=== PATIENT | female | born 1975 | race Caucasian/White ===

== ENCOUNTER 2017-01-27 19:40 | Emergency (ER) | payer BC, OTHER ==
[2017-01-27] MEDS ORDERED: HYDROmorphone 1 MG/ML 1 ML SYRINGE IVP STA ×2 (20:20→21:48)
[2017-01-27] MEDS ORDERED: SODIUM CHLORIDE 0.9% 1,000 ML IV STA (20:20)
[2017-01-27] MEDS ORDERED: ONDANSETRON 4 MG/2 ML VIAL IVP STA (20:20)
[2017-01-27] MEDS ORDERED: KETOROLAC 30 MG/ML 1 ML VIAL IVP STA (20:20)
[2017-01-27 20:58] LABS: Basophils # (A) 0.1 k/uL (0-0.2); Basophils % (A) 1 %; CH 29.6; CHCM 33.7; Eosinophils # (A) 0.2 k/uL (0-0.7); Eosinophils % (A) 2 %; HCT 36.8 % (34.0-46.0); HDW 2.57; HGB 12.7 gm/dL (11.4-16.0); Luc # (Auto) 0.08; Luc % (Auto) 1; Lymphocytes # (A) 2.2 k/uL (1.0-4.8); Lymphocytes % (A) 23 %; MCH 30.5 pg (25.0-35.0); MCHC 34.5 g/dL (31.0-37.0); MCV 88.5 fL (80.0-100.0); Mean Platelet Volume 7.8; Monocytes # (A) 0.5 k/uL (0-1.0); Monocytes % (A) 5 %; Neutrophils # (A) 6.4 k/uL (1.3-7.7); Neutrophils % (A) 69 %; RBC 4.16 m/uL (3.80-5.40); RDW 13.5 % (11.5-15.5); WBC 9.3 k/uL (3.8-10.6); WBC (Perox) 9.53
[2017-01-27 21:08] LABS: ALT 27 U/L (9-52); AST 14 U/L (14-36); Alkaline Phosphatase 81 U/L (38-126); Amylase 37 U/L (30-110); Anion Gap 7 mmol/L; Blood Urea Nitrogen 10 mg/dL (7-17); Calcium 9.1 mg/dL (8.4-10.2); Carbon Dioxide 24 mmol/L (22-30); Chloride 107 mmol/L (98-107); Glucose 83 mg/dL (74-99); Non-African American GFR(MDRD) >60 (>60 ml/min/1.73 sqM); Partial Thromboplastin Time 28.6 sec (22.0-30.0); Potassium 3.9 mmol/L (3.5-5.1); Prothrombin Time 10.3 sec (9.0-12.0); Sodium 138 mmol/L (137-145); Total Bilirubin 0.4 mg/dL (0.2-1.3); Total Protein 6.5 g/dL (6.3-8.2)
--- NOTE | 2017-01-27 21:22 | ED ---
Abdominal Pain HPI - General Chief Complaint: Abdominal Pain Stated Complaint: Abd pain Time Seen by Provider: 01/27/17 20:04 Source: patient, family, RN notes reviewed, old records reviewed Mode of arrival: ambulatory Limitations: no limitations - History of Present Illness Initial Comments: Is a 42-year-old female presenting to emergency Department chief complaint of epigastric and diffuse abdominal pain for the past month. She reports that she' s her primary care provider in a 100 mL surgeon for evaluation for gallbladder. She reports that she went to [facility] yesterday and had an ultrasound and blood work was obtained. They diagnosed her with the UTI. Patient reports that yesterday and today she's not started to develop some right flank pain. She continues to have the burning sensation over her entire abdomen. Patient is concerned that last time she had the flank pain similar to that she may have had a kidney stone. Patient denies any fever or chills, chest pain or shortness of breath. She reports that she's had her appendix removed. She states that she cannot tolerate any by mouth medication as she has been nauseated and wanting to vomit. - Related Data Home Medications Medication Instructions Recorded Confirmed ALPRAZolam [Xanax] 0.5 mg PO TID PRN 11/14/15 01/27/17 Escitalopram [Lexapro] 20 mg PO HS 11/14/15 01/27/17 Furosemide [Lasix] 40 mg PO DAILY PRN 11/14/15 01/27/17 Zolpidem [Ambien] 10 mg PO HS PRN 11/14/15 01/27/17 Diphenox-Atrop 2.5-0.025 mg 1 tab PO QID PRN 01/27/17 01/27/17 [Lomotil] Famotidine [Pepcid AC] 10 mg PO DAILY PRN 01/27/17 01/27/17 Previous Rx's Medication Instructions Recorded Sucralfate [Carafate] 1 gm PO BID #30 tablet 01/27/17 Allergies Allergy/AdvReac Type Severity Reaction Status Date / Time NSAIDS (Non-Steroidal AdvReac Severe Nausea & Verified 01/27/17 20:01 Anti-Inflamma Vomiting Review of Systems ROS Statement: Those systems with pertinent positive or pertinent negative responses have been documented in the HPI. ROS Other: All systems not noted in ROS Statement are negative. Past Medical History Past Medical History: GERD/Reflux, Osteoarthritis (OA) Additional Past Medical History / Comment(s): hx. h-pylori, past hx. sepsis due to kidney infection 2013, stomach abcess History of Any Multi-Drug Resistant Organisms: MRSA Date of last positivie culture/infection: 2013 MDRO Source:: abdomen Past Surgical History: Bariatric Surgery, Bladder Surgery, Hysterectomy, Orthopedic Surgery Additional Past Surgical History / Comment(s): lap band surg. & since removed, 9 surg. on left knee, 2 on right knee, surg. as baby for hematoma on head, bladder suspension Past Anesthesia/Blood Transfusion Reactions: Motion Sickness, Postoperative Nausea & Vomiting (PONV) Additional Past Anesthesia/Blood Transfusion Reaction / Comment(s): always has problems urinating after spinal anesthesia Past Psychological History: Anxiety, Depression Smoking Status: Current some day smoker Past Alcohol Use History: None Reported Past Drug Use History: None Reported - Past Family History Father Family Medical History: Deep Vein Thrombosis (DVT), Pulmonary Embolus General Exam Limitations: no limitations Course Vital Signs 01/27/17 01/27/17 01/27/17 19:43 20:45 21:50 Temperature 98.3 F 97.6 F Pulse Rate 88 84 63 Respiratory 20 16 16 Rate Blood Pressure 123/85 144/84 124/61 O2 Sat by Pulse 98 97 96 Oximetry 01/27/17 22:35 Temperature 97.6 F Pulse Rate 61 Respiratory 18 Rate Blood Pressure 138/76 O2 Sat by Pulse 96 Oximetry Medical Decision Making - Medical Decision Making Is a 42-year-old female presenting to emergency Department chief complaint of epigastric and diffuse abdominal pain for the past month. She reports that she' s her primary care provider in a 100 mL surgeon for evaluation for gallbladder. She reports that she went to [facility] yesterday and had an ultrasound and blood work was obtained. They diagnosed her with the UTI. Patient reports that yesterday and today she's not started to develop some right flank pain. She continues to have the burning sensation over her entire abdomen. I did review patient's visit from [facility]. They did discharge her with Keflex and Bentyl and Pepcid. Patient reports that she didn't also was given prescription of Zofran. She did not take the Zofran appropriately today and Is Something under Her Tongue. Patient Labwork Was Again Reviewed Today and Is Negative for Any Acute Process. Patient's Continued Pain. Discusses Seems to Be Likely a Gastritis or Possibly Duodenal or Gastric Ulcer. Patient Will Be Discharged with Zofran Starter Pack and Carafate Prescription. Discussed Falling up with Her Primary Care Provider. Return Parameters Were Discussed. - Lab Data Result diagrams: 01/27/17 20:47 01/27/17 20:47 Lab Results 01/27/17 01/27/17 01/27/17 Range/Units 20:47 20:47 20:47 WBC 9.3 (3.8-10.6) k/uL RBC 4.16 (3.80-5.40) m/uL Hgb 12.7 (11.4-16.0) gm/dL Hct 36.8 (34.0-46.0) % MCV 88.5 (80.0-100.0) fL MCH 30.5 (25.0-35.0) pg MCHC 34.5 (31.0-37.0) g/dL RDW 13.5 (11.5-15.5) % Plt Count 333 (150-450) k/uL Neutrophils % 69 % Lymphocytes % 23 % Monocytes % 5 % Eosinophils % 2 % Basophils % 1 % Neutrophils # 6.4 (1.3-7.7) k/uL Lymphocytes # 2.2 (1.0-4.8) k/uL Monocytes # 0.5 (0-1.0) k/uL Eosinophils # 0.2 (0-0.7) k/uL Basophils # 0.1 (0-0.2) k/uL PT 10.3 (9.0-12.0) sec INR 1.0 (<1.2) APTT 28.6 (22.0-30.0) sec Sodium 138 (137-145) mmol/L Potassium 3.9 (3.5-5.1) mmol/L Chloride 107 (98-107) mmol/L Carbon Dioxide 24 (22-30) mmol/L Anion Gap 7 mmol/L BUN 10 (7-17) mg/dL Creatinine 0.80 (0.52-1.04) mg/dL Est GFR (MDRD) Af Amer >60 (>60 ml/min/1.73 sqM) Est GFR (MDRD) Non-Af >60 (>60 ml/min/1.73 sqM) Glucose 83 (74-99) mg/dL Calcium 9.1 (8.4-10.2) mg/dL Total Bilirubin 0.4 (0.2-1.3) mg/dL AST 14 (14-36) U/L ALT 27 (9-52) U/L Alkaline Phosphatase 81 (38-126) U/L Total Protein 6.5 (6.3-8.2) g/dL Albumin 3.6 (3.5-5.0) g/dL Amylase 37 (30-110) U/L Lipase 43 (23-300) U/L Urine Color Urine Appearance (Clear) Urine pH (5.0-8.0) Ur Specific [place] (1.001-1.035) Urine Protein (Negative) Urine Glucose (UA) (Negative) Urine Ketones (Negative) Urine Blood (Negative) Urine Nitrite (Negative) Urine Bilirubin (Negative) Urine Urobilinogen (<2.0) mg/dL Ur Leukocyte Esterase (Negative) 01/27/17 Range/Units 21:36 WBC (3.8-10.6) k/uL RBC (3.80-5.40) m/uL Hgb (11.4-16.0) gm/dL Hct (34.0-46.0) % MCV (80.0-100.0) fL MCH (25.0-35.0) pg MCHC (31.0-37.0) g/dL RDW (11.5-15.5) % Plt Count (150-450) k/uL Neutrophils % % Lymphocytes % % Monocytes % % Eosinophils % % Basophils % % Neutrophils # (1.3-7.7) k/uL Lymphocytes # (1.0-4.8) k/uL Monocytes # (0-1.0) k/uL Eosinophils # (0-0.7) k/uL Basophils # (0-0.2) k/uL PT (9.0-12.0) sec INR (<1.2) APTT (22.0-30.0) sec Sodium (137-145) mmol/L Potassium (3.5-5.1) mmol/L Chloride (98-107) mmol/L Carbon Dioxide (22-30) mmol/L Anion Gap mmol/L BUN (7-17) mg/dL Creatinine (0.52-1.04) mg/dL Est GFR (MDRD) Af Amer (>60 ml/min/1.73 sqM) Est GFR (MDRD) Non-Af (>60 ml/min/1.73 sqM) Glucose (74-99) mg/dL Calcium (8.4-10.2) mg/dL Total Bilirubin (0.2-1.3) mg/dL AST (14-36) U/L ALT (9-52) U/L Alkaline Phosphatase (38-126) U/L Total Protein (6.3-8.2) g/dL Albumin (3.5-5.0) g/dL Amylase (30-110) U/L Lipase (23-300) U/L Urine Color Light Yellow Urine Appearance Clear (Clear) Urine pH 6.0 (5.0-8.0) Ur Specific [place] 1.004 (1.001-1.035) Urine Protein Negative (Negative) Urine Glucose (UA) Negative (Negative) Urine Ketones Negative (Negative) Urine Blood Negative (Negative) Urine Nitrite Negative (Negative) Urine Bilirubin Negative (Negative) Urine Urobilinogen <2.0 (<2.0) mg/dL Ur Leukocyte Esterase Negative (Negative) - Radiology Data Radiology results: report reviewed KUB are negative for any acute process. Disposition Clinical Impression: Abdominal pain, Gastritis Disposition: HOME SELF-CARE Condition: Good Instructions: Abdominal Pain (ED) Additional Instructions: Patient advised to take medications as prescribed. Follow-up with her primary care provider. Return to the emergency department if any alarming signs or symptoms occur. Prescriptions: Sucralfate [Carafate] 1 gm PO BID #30 tablet Referrals: Travis Fuentes DO [Primary Care Provider] - 1-2 days Time of Disposition: 22:12
--- NOTE | 2017-01-27 21:25 | XR ---
EXAMINATION TYPE: XR KUB DATE OF EXAM: 01/27/2017 COMPARISON: NONE HISTORY: Abdominal pain TECHNIQUE: 2 views FINDINGS: Bowel gas pattern is normal. There is no sign of intestinal obstruction or pneumoperitoneum . Fecal pattern is normal. There are no pathologic calcifications over the kidneys. IMPRESSION: Nonacute abdomen.
[2017-01-27] MEDS ORDERED: SODIUM CHLORIDE 0.9% 1,000 ML IV ONE (21:34)
[2017-01-27 21:51] VITALS: TEMP 97.6
[2017-01-27 21:53] LABS: Appearance,Urine Clear (Clear); Bilirubin,Urine Negative (Negative); Glucose,Urine (UA) Negative (Negative); Ketones,Urine Negative (Negative); Leukocyte Esterase,Urine Negative (Negative); Nitrite,Urine Negative (Negative); Protein,Urine Negative (Negative); Specific Gravity,Urine 1.004 (1.001-1.035); UA Billing (MACRO vs. MICRO) CHEM; Urobilinogen,Urine <2.0 mg/dL (<2.0)
[2017-01-27] MEDS ORDERED: ONDANSETRON 4 MG ODT STARTER PACK 2 TAB BTL PO STA (22:14)
[2017-01-27 22:36] VITALS: BP 138/76; PULSE 61; RESP 18
== END 2017-01-27 22:36 | disposition home or self-care (01) ==
LOC: EC 19:40
DX: K29.70 Gastritis, unspecified, without bleeding (principal); R11.0 Nausea; K21.9 Gastro-esophageal reflux disease without esophagitis; F32.9 Major depressive disorder, single episode, unspecified; F41.9 Anxiety disorder, unspecified; F17.200 Nicotine dependence, unspecified, uncomplicated; Z79.899 Other long term (current) drug therapy; Z88.6 Allergy status to analgesic agent; Z87.440 Personal history of urinary (tract) infections; Z98.84 Bariatric surgery status; Z98.890 Other specified postprocedural states
CPT/HCPCS: 99284; 96374; 96375; 96376; 96361 ×2; 36415; 80053; 82150; 83690; 85025; 85610; 85730; 81003; 74000; J2405; J1170; S0119

== ENCOUNTER → 2017-02-25 | Outpatient (CLI) | payer OTHER ==
[2017-02-25 16:39] LABS: Basophils # (A) 0.1 k/uL (0-0.2); Basophils % (A) 1 %; CH 29.6; CHCM 32.8; Eosinophils # (A) 0.1 k/uL (0-0.7); Eosinophils % (A) 1 %; HGB 13.2 gm/dL (11.4-16.0); Luc # (Auto) 0.16; Luc % (Auto) 1; Lymphocytes # (A) 3.2 k/uL (1.0-4.8); Lymphocytes % (A) 25 %; MCH 29.2 pg (25.0-35.0); MCHC 32.2 g/dL (31.0-37.0); MCV 90.7 fL (80.0-100.0); Mean Platelet Volume 7.3; Monocytes # (A) 0.6 k/uL (0-1.0); Monocytes % (A) 5 %; Neutrophils # (A) 8.4 k/uL (1.3-7.7); Neutrophils % (A) 67 %; RBC 4.51 m/uL (3.80-5.40); RDW 13.4 % (11.5-15.5); WBC 12.5 k/uL (3.8-10.6); WBC (Perox) 12.16
[2017-02-25 17:06] LABS: ALT 30 U/L (9-52); AST 15 U/L (14-36); Alkaline Phosphatase 94 U/L (38-126); Anion Gap 12 mmol/L; Blood Urea Nitrogen 10 mg/dL (7-17); C Reactive Protein 13.6 mg/L (<10.0); Calcium 9.9 mg/dL (8.4-10.2); Carbon Dioxide 25 mmol/L (22-30); Chloride 105 mmol/L (98-107); Glucose 92 mg/dL (74-99); Non-African American GFR(MDRD) >60 (>60 ml/min/1.73 sqM); Potassium 4.4 mmol/L (3.5-5.1); Sodium 142 mmol/L (137-145); Total Bilirubin 0.3 mg/dL (0.2-1.3); Total Protein 7.3 g/dL (6.3-8.2)
[2017-02-25 18:48] LABS: Erythrocyte Sedimentation Rate 20 mm/hr (0-20)
[2017-02-26 01:40] LABS: Gliadin AB IgA, Deaminated NEGATIVE (NEGATIVE); Gliadin AB IgG, Deaminated NEGATIVE (NEGATIVE); Gliadin AB IgG, Unit <0.4 U/mL; Tis Transglutaminase IgA Unit <0.5 AI; Tis Transglutaminase IgG Unit <0.8 U/mL
== END | disposition home or self-care (01) ==
LOC: LABWHC1 16:07
PROVIDERS: ATTEND Internal Medicine Gastroenterology
DX: R63.4 Abnormal weight loss (principal)
CPT/HCPCS: 36415; 80053; 83516; 85025; 85652; 86140

== ENCOUNTER 2017-03-03 10:59 | Day surgery (SDC) | payer OTHER ==
[2017-03-01 16:04] VITALS: BMI 37.4
[~2017-03-03 10:59] MED LIST: LACTATED RINGERS 1,000 ML IV SCH
[2017-03-03 12:32] VITALS: TEMP 97.7
[2017-03-03] MEDS ORDERED: LIDOCAINE 1% 20 ML VIAL (10MG/ML) FOR IV START INTRADERMA ONE (12:33)
[2017-03-03] MEDS ORDERED: GLYCOPYRROLATE 0.2 MG/ML 2 ML VIAL ONE (12:35)
[2017-03-03] MEDS ORDERED: PROPOFOL 10 MG/ML 20 ML VIAL IV ONE (12:35)
[2017-03-03] MEDS ORDERED: LIDOCAINE 1% INJ 10MG/ML (20 ML MDV) ONE (12:35)
--- NOTE | 2017-03-03 12:57 | P.PCN ---
Date of Procedure: 03/03/17 Preoperative Diagnosis: Postoperative Diagnosis: Procedure(s) Performed: Brief history: Patient is a pleasant 42-year-old white female, scheduled for an elective upper endoscopy as well as colonoscopy as a part of evaluation of epigastric abdominal pain, intermittent dysphagia to solids, chronic diarrhea and change in bowel habits for the last 7 years duration. Procedure performed: Esophagogastroduodenoscopy with biopsy Colonoscopy with biopsy Preoperative diagnosis: Epigastric pain and intermittent dysphagia to solids Chronic diarrhea Anesthesia: MAC Procedure: After informed consent was obtained from the patient was brought into the endoscopy unit and IV sedation was administered by anesthesia under continuous monitoring. Initially upper endoscopy was done. The Olympus GF 160 video endoscope was inserted inserted into the mouth and esophagus intubated without any difficulty and was gradually advanced into the stomach and duodenum and carefully examined. The bulb and second part of the duodenum appeared normal. Biopsies were done from the duodenum to rule out celiac disease. The scope was then withdrawn into the stomach adequately insufflated with air and upon careful examination the antrum had mild gastritis and biopsies were done from this area. The body, cardia and fundus appeared normal. The scope was then withdrawn into the esophagus. The GE junction was located at 40 cm to the incisors. small hiatal hernia noted It appeared regular with no erythema erosions or ulcerations. biopsies were also done from the distal esophagus. Rest of the esophagus appeared normal. esophageal stricture noted. Patient tolerated the procedure well. At this time the patient continued to remain sedation. Initial digital rectal examination was normal. Olympus CF 160 video colonoscope was then inserted into the rectum and gradually advanced to the cecum without any difficulty. Careful examination was performed as the scope was gradually being withdrawn. The prep was excellent. The cecum, ascending colon, transverse colon, descending colon, sigmoid colon and rectum appeared normal. Retroflexion was performed in the rectum and no lesions were noted. random biopsies were done from ascending and descending colon to rule out meds/collagenous colitis. Patient tolerated the procedure well. Impression: 1. Upper endoscopy revealed mild antral gastritis and a small hiatal hernia but no evidence of esophagitis or peptic ulcer disease. 2. Colonoscopy revealed normal-appearing colon from rectum to cecum with no evidence of colitis or colorectal neoplasia. Recommendations: Findings of this examination were discussed with the patient as well as her family. She was advised to follow with the biopsy results. She'll be seen in office in 3-4 weeks. Implants: Indications for Procedure: Operative Findings: Description of Procedure:
[2017-03-03 13:04] VITALS: RESP 18
[2017-03-03 13:47] VITALS: BP 134/75; PULSE 62
== END 2017-03-03 13:56 | disposition home or self-care (01) ==
LOC: ORWHC2ENDO 10:59
PROVIDERS: ATTEND Internal Medicine Gastroenterology
DX: K29.50 Unspecified chronic gastritis without bleeding (principal); K21.0 Gastro-esophageal reflux disease with esophagitis; K44.9 Diaphragmatic hernia without obstruction or gangrene; K52.9 Noninfective gastroenteritis and colitis, unspecified; R19.4 Change in bowel habit; F17.200 Nicotine dependence, unspecified, uncomplicated; M19.90 Unspecified osteoarthritis, unspecified site; Z79.891 Long term (current) use of opiate analgesic; Z79.899 Other long term (current) drug therapy; Z88.6 Allergy status to analgesic agent
CPT/HCPCS: 43239; 45380; 88305; 88342

== ENCOUNTER 2017-04-20 13:29 | Emergency (ER) | payer OTHER ==
[2017-04-20 13:35] VITALS: RESP 16
[2017-04-20] MEDS ORDERED: SODIUM CHLORIDE 0.9% 1,000 ML IV STA (14:29)
--- NOTE | 2017-04-20 14:46 | ED ---
Nausea/Vomiting/Diarrhea HPI - General Chief complaint: Abdominal Pain Stated complaint: Abd Pain Time Seen by Provider: 04/20/17 14:22 Source: patient Mode of arrival: ambulatory Limitations: no limitations - History of Present Illness Initial comments: Patient presents with nausea vomiting diarrhea for the past 4 days. Patient states she has yellow diarrhea greater than 10 times per day. Patient states she has been vomiting intermittently as well. Patient states this is a chronic recurrent issue for her, states has been ongoing for 4-5 years. Occurs approximately 2 times per year. States she sees turret lathe machinist Dr. Trevino, tried to get into her office but was told she should go to the ER. Symptoms associated with mild lower abdominal cramping. Patient states she has seen tiny amounts of blood after wiping. Patient states she had a colonoscopy that showed no inflammation. Patient states she was diagnosed with H. pylori, states she completed a course of medication therapy for H. pylori. Patient denies vaginal bleeding or vaginal discharge. Patient complains of urinary frequency. Patient states symptoms are the exact same as previous episodes over the past 4-5 years. EGD/Colonoscopy done on 03/03/[address] Trevino. Patient admitted to hospital May 2016, for suspected possible left-sided pyelonephritis, CT of the abdomen at that time showed no obstruction or acute process within the abdomen. Patient states her symptoms today are the exact same as they were in May of last year. MD complaint: nausea, vomiting, diarrhea Onset/Timin -: days(s) - Related Data Home Medications Medication Instructions Recorded Confirmed ALPRAZolam [Xanax] 0.5 mg PO TID 11/14/15 04/20/17 Furosemide [Lasix] 40 mg PO DAILY PRN 11/14/15 04/20/17 Zolpidem [Ambien] 10 mg PO HS PRN 11/14/15 04/20/17 Diphenox-Atrop 2.5-0.025 mg 1 tab PO QID PRN 01/27/17 04/20/17 [Lomotil] Acetaminophen-Codeine 300-30mg 1 tab PO Q4-6H PRN 03/01/17 04/20/17 [Tylenol #3] Sucralfate [Carafate] 1 gm PO QID 03/01/17 04/20/17 Escitalopram [Lexapro] 20 mg PO DAILY 04/20/17 04/20/17 Allergies Allergy/AdvReac Type Severity Reaction Status Date / Time aspirin Allergy Severe Nausea & Verified 04/20/17 14:37 Vomiting NSAIDS (Non-Steroidal AdvReac Severe Nausea & Verified 04/20/17 14:37 Anti-Inflamma Vomiting Review of Systems ROS Statement: Those systems with pertinent positive or pertinent negative responses have been documented in the HPI. ROS Other: All systems not noted in ROS Statement are negative. Constitutional: Reports: fever (Subjective). Denies: chills, weakness Eyes: Denies: vision change ENT: Denies: throat pain, congestion Respiratory: Denies: cough, dyspnea Cardiovascular: Denies: chest pain, palpitations Endocrine: Denies: fatigue Gastrointestinal: Reports: abdominal pain, nausea, vomiting, diarrhea. Denies: constipation, hematemesis, melena Genitourinary: Reports: frequency. Denies: urgency, dysuria, hematuria, discharge, abnormal menses Musculoskeletal: Denies: back pain, arthralgia, myalgia Skin: Denies: rash Neurological: Denies: headache, weakness, numbness, confusion Past Medical History Past Medical History: GERD/Reflux, Osteoarthritis (OA) Additional Past Medical History / Comment(s): hx. h-pylori, past hx. sepsis due to kidney infection 2013, stomach abcess History of Any Multi-Drug Resistant Organisms: MRSA Date of last positivie culture/infection: 2013 MDRO Source:: abdomen Past Surgical History: Bariatric Surgery, Bladder Surgery, Hysterectomy, Orthopedic Surgery Additional Past Surgical History / Comment(s): lap band surg. & since removed, 9 surg. on left knee, 2 on right knee, surg. as baby for hematoma on head, bladder suspension Past Anesthesia/Blood Transfusion Reactions: Motion Sickness, Postoperative Nausea & Vomiting (PONV) Additional Past Anesthesia/Blood Transfusion Reaction / Comment(s): always has problems urinating after spinal anesthesia Past Psychological History: Anxiety, Depression Smoking Status: Current every day smoker Past Alcohol Use History: None Reported Past Drug Use History: None Reported - Past Family History Father Family Medical History: Deep Vein Thrombosis (DVT), Pulmonary Embolus General Exam - General Exam Comments Initial Comments: Patient sitting up on [place]. No acute distress. Conversing normally. Well appearing. Well-groomed well-dressed. Patient does not appear in pain or nauseated. Patient smiling as she goes through bottles of medication from her purse. Limitations: no limitations General appearance: alert, in no apparent distress Head exam: Present: atraumatic, normocephalic Eye exam: Present: PERRL, EOMI ENT exam: Present: mucous membranes moist, normal external ear exam Neck exam: Present: normal inspection Respiratory exam: Present: normal lung sounds bilaterally. Absent: respiratory distress, wheezes, rales, rhonchi Cardiovascular Exam: Present: regular rate, normal rhythm GI/Abdominal exam: Present: soft, other (Abd is nontender on palpation, nondistended. ). Absent: distended, tenderness, guarding, rebound, rigid Rectal exam: Present: normal inspection, normal rectal tone, heme (-) stool, other (bedside hemoccult neg). Absent: heme (+) stool Neurological exam: Present: alert, oriented X3 Psychiatric exam: Present: normal affect, normal mood Skin exam: Present: warm, dry, intact, normal color. Absent: rash Course Vital Signs 04/20/17 04/20/17 13:33 17:17 Temperature 98.3 F 98.0 F Pulse Rate 82 66 Respiratory 16 16 Rate Blood Pressure 130/67 129/68 O2 Sat by Pulse 97 97 Oximetry Medical Decision Making - Medical Decision Making Patient well appearing on exam, well hydrated. No tenderness of the abdomen. Will check stool studies given complaint of frequent diarrhea. Abdominal labs ordered. IV fluids ordered. Patient with mild elevation of white blood cell count, no other significant laboratory abnormalities on labs. Patient states she has left-sided abdominal pain, given elevation in white count , and history of intra-abdominal abscess, CT of the abdomen was ordered. CT of the abdomen was negative for any acute pathology. Patient reassessed, abdomen remains nontender. Patient states symptoms resolved at this time. Patient had no diarrhea in the ER, unable to provide stool sample. Patient instructed to follow up with her turret lathe machinist. at bedside states this is been a chronic problem for the past 10 years. Mother bedside states she's had all the tests and they can't figure out what' s wrong. SHe feels comfortable going home at this time. All questions answered. Patient discharged home. Return immediately if new or worsening symptoms. - Lab Data Result diagrams: 04/20/17 15:10 04/20/17 15:10 Lab Results 04/20/17 04/20/1704/20/17 Range/Units 14:37 15:10 15:10 WBC 13.6 H (3.8-10.6) k/uL RBC 4.40 (3.80-5.40) m/uL Hgb 13.0 (11.4-16.0) gm/dL Hct 39.2 (34.0-46.0) % MCV 89.0 (80.0-100.0) fL MCH 29.6 (25.0-35.0) pg MCHC 33.3 (31.0-37.0) g/dL RDW 13.7 (11.5-15.5) % Plt Count 366 (150-450) k/uL Neutrophils % 79 % Lymphocytes % 15 % Monocytes % 5 % Eosinophils % 0 % Basophils % 0 % Neutrophils # 10.8 H (1.3-7.7) k/uL Lymphocytes # 2.0 (1.0-4.8) k/uL Monocytes # 0.6 (0-1.0) k/uL Eosinophils # 0.1 (0-0.7) k/uL Basophils # 0.1 (0-0.2) k/uL Sodium 141 (137-145) mmol/L Potassium 3.4 L (3.5-5.1) mmol/L Chloride 108 H (98-107) mmol/L Carbon Dioxide 23 (22-30) mmol/L Anion Gap 10 mmol/L BUN 8 (7-17) mg/dL Creatinine 0.88 (0.52-1.04) mg/dL Est GFR (MDRD) Af Amer >60 (>60 ml/min/1.73 sqM) Est GFR (MDRD) Non-Af >60 (>60 ml/min/1.73 sqM) Glucose 97 (74-99) mg/dL Calcium 9.5 (8.4-10.2) mg/dL Total Bilirubin 0.5 (0.2-1.3) mg/dL AST 17 (14-36) U/L ALT 31 (9-52) U/L Alkaline Phosphatase 92 (38-126) U/L Total Protein 7.7 (6.3-8.2) g/dL Albumin 4.2 (3.5-5.0) g/dL Lipase 43 (23-300) U/L Urine HCG, Qual Not Detected (Not Detectd) Disposition Clinical Impression: Diarrhea, Abdominal pain Disposition: HOME SELF-CARE Condition: Good Instructions: Chronic Diarrhea (ED), Abdominal Pain (ED) Additional Instructions: Make Appointment with her turret lathe machinist to be reevaluated this week. Referrals: Travis Fuentes DO [Primary Care Provider] - 1-2 days
--- NOTE | 2017-04-20 14:53 | XR ---
EXAMINATION TYPE: XR abdomen 2V DATE OF EXAM: 04/20/2017 CLINICAL HISTORY: Abdominal pain with nausea and diarrhea and left-sided flank pain. TECHNIQUE: Supine and upright views of the abdomen are obtained. COMPARISON: CT abdomen and pelvis June 02, 2016. Abdominal x-ray January 27, 2017 FINDINGS: Focal subsegmental sutures epigastric region just below diaphragm are consistent with produ ct Harrison fundoplication surgery. Scattered gas is seen in non-distended stomach and small bowel loop s. Gas and fecal material is seen in non-distended colon. Scattered pelvic phleboliths are redemonst rated. There is no visceromegaly, pneumoperitoneum, or abnormal calcification appreciated. The lung bases are clear and the osseous structures are intact. IMPRESSION: Overall nonobstructive bowel gas pattern. No definite nephrolithiasis.
[2017-04-20 15:32] LABS: Basophils # (A) 0.1 k/uL (0-0.2); Basophils % (A) 0 %; CH 29.1; CHCM 32.9; Eosinophils # (A) 0.1 k/uL (0-0.7); Eosinophils % (A) 0 %; HCT 39.2 % (34.0-46.0); HDW 2.49; Luc # (Auto) 0.13; Luc % (Auto) 1; Lymphocytes % (A) 15 %; MCH 29.6 pg (25.0-35.0); MCHC 33.3 g/dL (31.0-37.0); Mean Platelet Volume 6.7; Monocytes # (A) 0.6 k/uL (0-1.0); Monocytes % (A) 5 %; Neutrophils # (A) 10.8 k/uL (1.3-7.7); Neutrophils % (A) 79 %; RDW 13.7 % (11.5-15.5); WBC 13.6 k/uL (3.8-10.6); WBC (Perox) 13.73
[2017-04-20 15:35] LABS: ALT 31 U/L (9-52); AST 17 U/L (14-36); Alkaline Phosphatase 92 U/L (38-126); Anion Gap 10 mmol/L; Blood Urea Nitrogen 8 mg/dL (7-17); Calcium 9.5 mg/dL (8.4-10.2); Carbon Dioxide 23 mmol/L (22-30); Chloride 108 mmol/L (98-107); Glucose 97 mg/dL (74-99); Non-African American GFR(MDRD) >60 (>60 ml/min/1.73 sqM); Potassium 3.4 mmol/L (3.5-5.1); Sodium 141 mmol/L (137-145); Total Bilirubin 0.5 mg/dL (0.2-1.3); Total Protein 7.7 g/dL (6.3-8.2)
[2017-04-20 15:58] LABS: Appearance,Urine Clear (Clear); Bilirubin,Urine Negative (Negative); Glucose,Urine (UA) Negative (Negative); Ketones,Urine Negative (Negative); Leukocyte Esterase,Urine Negative (Negative); Mucus,Urine Rare /hpf; Nitrite,Urine Negative (Negative); Particle Count 2292; Protein,Urine Negative (Negative); RBC,Urine 1 /hpf (0-5); Specific Gravity,Urine 1.006 (1.001-1.035); Squamous Epithelial Cell,Urine 7 /hpf (0-4); UA Billing (MACRO vs. MICRO) MICRO; Urobilinogen,Urine <2.0 mg/dL (<2.0); WBC,Urine 2 /hpf (0-5)
[2017-04-20] MEDS ORDERED: MORPHINE SULFATE 2 MG/ML SYRINGE IVP ONE ×3 (16:22→16:26)
[2017-04-20] MEDS ORDERED: RX INFO: IV CONTRAST WAS GIVEN 1 EACH MISC MISCELLANE PRN (16:22)
--- NOTE | 2017-04-20 17:10 | CT ---
EXAMINATION TYPE: CT abdomen pelvis w con DATE OF EXAM: 04/20/2017 COMPARISON: 06/02/2016 HISTORY: Left sided abdominal pain CT DLP: 1753.8 mGycm Automated exposure control for dose reduction was used. TECHNIQUE: Helical acquisition of images was performed from the lung bases through the pelvis. CONTRAST: Performed without Oral Contrast and with IV Contrast, patient injected with 100 mL of Omnipaque 350. FINDINGS: Lung bases are clear of consolidation. There is no pleural effusion. There are clips at the gastroeso phageal junction. Liver shows no focal defect. Bile ducts are not dilated. Spleen and pancreas appear normal. Gallbladd er appears normal. There is no adrenal mass. Kidneys show satisfactory contrast opacification. There is no hydronephrosi s. There is no sign of appendicitis. There is no ascites. I see no intestinal wall thickening. There are no dilated loops. Bladder distends smoothly. There is no sign of a pelvic mass. I see no bony chilo tructive process. There are calcific densities posterior to the cecum that could relate to previous s urgery. IMPRESSION: NEGATIVE CT SCAN OF THE ABDOMEN AND PELVIS. THERE IS CLEARING OF MILD INTERSTITIAL DENSITY AT THE DARLING G BASES COMPARED TO OLD EXAM. I DO NOT SEE A CAUSE FOR LEFT-SIDED ABDOMINAL PAIN.
[2017-04-20 17:18] VITALS: BP 129/68; PULSE 66; TEMP 98
== END 2017-04-20 17:32 | disposition home or self-care (01) ==
LOC: EC 13:29
DX: R10.30 Lower abdominal pain, unspecified (principal); R19.7 Diarrhea, unspecified; R11.2 Nausea with vomiting, unspecified; R35.0 Frequency of micturition; K21.9 Gastro-esophageal reflux disease without esophagitis; M19.90 Unspecified osteoarthritis, unspecified site; F32.9 Major depressive disorder, single episode, unspecified; F41.9 Anxiety disorder, unspecified; F17.200 Nicotine dependence, unspecified, uncomplicated; Z79.899 Other long term (current) drug therapy; Z88.6 Allergy status to analgesic agent; Z90.710 Acquired absence of both cervix and uterus; Z98.84 Bariatric surgery status
CPT/HCPCS: 99284 ×2; 96374 ×2; 96361 ×2; 36415; 80053; 83690; 85025; 81001; 81025; 74020; 74177; Q9967; J2270

== ENCOUNTER 2018-01-25 12:20 | Emergency (ER) | payer OTHER ==
[2018-01-25 12:30] VITALS: BP 137/94; PULSE 104; RESP 20; TEMP 98.1
--- NOTE | 2018-01-25 13:00 | XR ---
EXAMINATION TYPE: XR ankle complete RT, XR foot complete RT DATE OF EXAM: 01/25/2018 CLINICAL HISTORY: Fall injury with pain and limited motion. TECHNIQUE: Frontal, lateral and oblique images of the right ankle and foot are obtained. COMPARISON: None. FINDINGS: There is no acute fracture/dislocation evident in the right ankle. The ankle mortise appe ars within normal limits. Tiny spur from lateral malleolus is seen. The overlying soft tissue appears unremarkable. There is small size inferior calcaneal spur. There is no acute fracture or dislocation evident in the right foot. Hallex valgus positioning first metatarsophalangeal joint with mild joint space loss is present. Some flexion in the toes is noted. Overlying soft tissue is unremarkable. IMPRESSION: There is no acute fracture or dislocation in the right ankle or foot.
[2018-01-25] MEDS ORDERED: Acetaminophen-Codeine 300-30mg TAB PO STA (13:29)
[2018-01-25] MEDS ORDERED: ACET/COD 300 MG/30 MG STARTER PACK 6 TAB BTL PO STA (13:33)
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
== END 2018-01-25 13:45 | disposition home or self-care (01) ==
LOC: EC 12:20
DX: S93.401A Sprain of unspecified ligament of right ankle, initial encounter (principal); F41.9 Anxiety disorder, unspecified; F32.9 Major depressive disorder, single episode, unspecified; M19.90 Unspecified osteoarthritis, unspecified site; F17.200 Nicotine dependence, unspecified, uncomplicated; Z86.14 Personal history of Methicillin resistant Staphylococcus aureus infection; Z79.899 Other long term (current) drug therapy; Z88.6 Allergy status to analgesic agent; W10.9XXA Fall (on) (from) unspecified stairs and steps, initial encounter; Y93.01 Activity, walking, marching and hiking
CPT/HCPCS: 29515; 99283

== ENCOUNTER 2019-08-08 14:15 | Emergency (ER) | payer OTHER ==
[2019-08-08 14:26] VITALS: RESP 18; TEMP 97.5
[2019-08-08] MEDS ORDERED: ACETAMINOPHEN TAB 500 MG TAB PO STA (15:06)
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
[2019-08-08] MEDS ORDERED: AMPICILLIN-SULBACTAM 3 GM in SODIUM CHLORIDE 0.9% 100 ML IVPB STA (17:26)
[2019-08-08] MEDS ORDERED: DIAZEPAM 5 MG/ML 2 ML INJ IVP STA (17:28)
[2019-08-08] MEDS ORDERED: MORPHINE SULFATE 4 MG/ML SYRINGE IVP STA (17:28)
[2019-08-08] MEDS ORDERED: MORPHINE SULFATE 4 MG/ML SYRINGE IM STA (17:41)
[2019-08-08] MEDS ORDERED: ALPRAZolam 0.5 MG TAB PO STA (17:41)
[2019-08-08] MEDS ORDERED: traMADol 50 MG STARTER PACK 3 TAB BTL PO STA (18:31)
[2019-08-08 18:49] VITALS: BP 144/94; PULSE 59
== END 2019-08-08 18:47 | disposition home or self-care (01) ==
LOC: EC 14:15
DX: S02.32XA Fracture of orbital floor, left side, initial encounter for closed fracture (principal); S02.40DA Maxillary fracture, left side, initial encounter for closed fracture; F41.9 Anxiety disorder, unspecified; R45.1 Restlessness and agitation; M19.90 Unspecified osteoarthritis, unspecified site; F32.9 Major depressive disorder, single episode, unspecified; F17.200 Nicotine dependence, unspecified, uncomplicated; Z88.6 Allergy status to analgesic agent; Z79.891 Long term (current) use of opiate analgesic; Z79.899 Other long term (current) drug therapy; Z86.14 Personal history of Methicillin resistant Staphylococcus aureus infection; Y00.XXXA Assault by blunt object, initial encounter; Y93.89 Activity, other specified; Y92.009 Unspecified place in unspecified non-institutional (private) residence as the place of occurrence of the external cause
CPT/HCPCS: 70486; 70450; 99284; 96372; J2270

== ENCOUNTER 2020-03-30 14:46 | Emergency (ER) | payer OTHER ==
[2020-03-30] MEDS ORDERED: MORPHINE SULFATE 4 MG/ML SYRINGE IVP STA (15:30)
[2020-03-30] MEDS ORDERED: PANTOPRAZOLE 40 MG/10 ML VIAL IVP STA (15:30)
[2020-03-30] MEDS ORDERED: ONDANSETRON 4 MG/2 ML VIAL IVP STA (15:30)
[2020-03-30 16:43] LABS: Basophils % (A) 0 %; Eosinophils # (A) 0.2 k/uL (0-0.7); Eosinophils % (A) 2 %; HCT 42.9 % (34.0-46.0); HGB 13.4 gm/dL (11.4-16.0); Lymphocytes # (A) 1.7 k/uL (1.0-4.8); Lymphocytes % (A) 14 %; MCH 25.2 pg (25.0-35.0); MCHC 31.3 g/dL (31.0-37.0); MCV 80.5 fL (80.0-100.0); Mean Platelet Volume 7.5; Monocytes # (A) 0.5 k/uL (0-1.0); Monocytes % (A) 4 %; Neutrophils # (A) 9.6 k/uL (1.3-7.7); Neutrophils % (A) 79 %; Platelet Count 419 k/uL (150-450); RBC 5.33 m/uL (3.80-5.40); RDW 14.1 % (11.5-15.5)
[2020-03-30 16:53] LABS: Albumin 4.3 g/dL (3.5-5.0); Calcium 10.2 mg/dL (8.4-10.2); Partial Thromboplastin Time 29.5 sec (22.0-30.0); Potassium 4.1 mmol/L (3.5-5.1); Prothrombin Time 10.1 sec (9.0-12.0); Total Bilirubin 0.6 mg/dL (0.2-1.3)
--- NOTE | 2020-03-30 17:29 | CT ---
EXAMINATION TYPE: CT abdomen pelvis w con DATE OF EXAM: 03/30/2020 HISTORY: Lower abdominal pain, rectal pain. Hx bariatric sx, H-pylori. CT DLP: 2127.2mGycm Automated Exposure Control for Dose Reduction was Utilized. CONTRAST: CT scan of the abdomen and pelvis is performed without oral but with IV Contrast, patient injected wi th 100 mL of Isovue 300. COMPARISON: CT abdomen and pelvis April 20, 2017 FINDINGS: LUNG BASES: Mild cardiomegaly. LIVER/GB: No significant abnormality is appreciated. PANCREAS: No significant abnormality is seen. SPLEEN: No significant abnormality is seen. ADRENALS: No significant abnormality is seen. KIDNEYS: No significant abnormality is seen. BOWEL: Surgical changes epigastric region just below diaphragm suspect prior Hannah fundoplication prince rgery. Stomach poorly distended and suboptimally evaluated. Suboptimal evaluation overall of bowel wi thout enteric contrast. No suspicious small or large bowel dilatation noted. Calcific small densities in the posterior right lower quadrant could reflect phleboliths, unchanged from prior. UTERUS/ADNEXA: Uterus is surgically absent. Normal size ovaries in the pelvis near axial image 73. LYMPH NODES: No greater than 1cm abdominal or pelvic lymph nodes are appreciated. OSSEOUS STRUCTURES: No significant abnormality is seen. OTHER: No significant additional abnormality is seen. IMPRESSION: No significant new or acute finding is seen to account for patient's clinical symptoms. N o bowel obstruction noted.
[2020-03-30] MEDS ORDERED: MORPHINE SULFATE 2 MG/ML SYRINGE IVP ONE (18:16)
--- NOTE | 2020-03-30 18:20 | ED ---
General Adult HPI - General Chief complaint: GI Bleed Stated complaint: GI Bleed Time Seen by Provider: 03/30/20 15:02 Source: patient Mode of arrival: ambulatory Limitations: no limitations - History of Present Illness Initial comments: Patient is a 45-year-old female presenting to the emergency Department with complaints of lower abdominal pain, rectal pain, mild rectal bleeding x 2-3 weeks. She states she has a history of H. pylori and has had the same symptoms with past infections. Patient states she has been delaying her treatment secondary to stress at home. Patient states that this time she is having a hard time even sitting on her bottom secondary to pain. She states she's been having a lot of bowel movements and feels like "she has an infection in her rectum." Patient admits to subjective fevers over the past 2 days but has not been able to check. Patient admits to some mild nausea, no vomiting. She does admit to some very mild lower abdominal discomfort. She denies any urinary symptoms. She denies any hematuria. Date she has been hospitalized in the past for a severe infection. She denies any chest pain or shortness of breath. She has no further complaints at this time. Upon arrival to the ER, she is afebrile. - Related Data Home Medications Medication Instructions Recorded Confirmed Zolpidem [Ambien] 10 mg PO HS PRN 11/14/15 03/30/20 Escitalopram [Lexapro] 20 mg PO HS 04/20/17 03/30/20 ALPRAZolam [Xanax] 0.25 mg PO HS PRN 03/30/20 03/30/20 Acetaminophen Tab [Tylenol] 650 mg PO Q4H PRN 03/30/20 03/30/20 Furosemide [Lasix] 20 mg PO DAILY PRN 03/30/20 03/30/20 Loratadine [Claritin] 10 mg PO DAILY PRN 03/30/20 03/30/20 Naproxen 500 mg PO BID PRN 03/30/20 03/30/20 Ondansetron [Zofran] 4 mg PO Q6H PRN 03/30/20 03/30/20 SUMAtriptan succinate [Imitrex] 50 mg PO DAILY PRN 03/30/20 03/30/20 Previous Rx's Medication Instructions Recorded Amoxicillin 1,000 mg PO BID 10 Days #40 capsule 03/30/20 Clarithromycin 500 mg PO BID 10 Days #20 tablet 03/30/20 Allergies Allergy/AdvReac Type Severity Reaction Status Date / Time aspirin Allergy Severe Nausea & Verified 03/30/20 16:22 Vomiting NSAIDS (Non-Steroidal AdvReac Severe Nausea & Verified 03/30/20 16:22 Anti-Inflamma Vomiting Review of Systems ROS Statement: Those systems with pertinent positive or pertinent negative responses have been documented in the HPI. ROS Other: All systems not noted in ROS Statement are negative. Past Medical History Past Medical History: GERD/Reflux, Osteoarthritis (OA) Additional Past Medical History / Comment(s): hx. h-pylori, past hx. sepsis due to kidney infection 2013, stomach abcess History of Any Multi-Drug Resistant Organisms: MRSA Date of last positivie culture/infection: 2013 MDRO Source:: abdomen Past Surgical History: Bariatric Surgery, Bladder Surgery, Hysterectomy, Orthopedic Surgery Additional Past Surgical History / Comment(s): lap band surg. & since removed, 9 surg. on left knee, 2 on right knee, surg. as baby for hematoma on head, bladder suspension Past Anesthesia/Blood Transfusion Reactions: Motion Sickness, Postoperative Nausea & Vomiting (PONV) Additional Past Anesthesia/Blood Transfusion Reaction / Comment(s): always has problems urinating after spinal anesthesia Past Psychological History: Anxiety, Depression Smoking Status: Current every day smoker Past Alcohol Use History: None Reported Past Drug Use History: None Reported - Past Family History Father Family Medical History: Deep Vein Thrombosis (DVT), Pulmonary Embolus General Exam - General Exam Comments Initial Comments: GENERAL: Patient is well-developed and well-nourished. Patient is nontoxic and in mild distress. HEAD: Atraumatic, normocephalic. EYES: Pupils equal round and reactive to light, extraocular movements intact, sclera anicteric, conjunctiva are normal. Eyelids were unremarkable. ENT: TMs normal, nares patent, oropharynx clear without exudates. Moist mucous membranes. NECK: Normal range of motion, supple without lymphadenopathy or JVD. LUNGS: Unlabored respirations. Breath sounds clear to auscultation bilaterally and equal. No wheezes rales or rhonchi. HEART: Regular rate and rhythm without murmurs, rubs or gallops. ABDOMEN: Mild suprapubic lower abdominal discomfort. Soft, normoactive bowel sounds. No guarding, no rebound. No masses appreciated. : Deferred MUSCULOSKELETAL: Normal extremities with adequate strength and normal range of motion, no pitting or edema. No clubbing or cyanosis. NEUROLOGICAL: Patient is alert and oriented x 3. Motor and sensory are also intact. Cranial nerves II through XII grossly intact. Symmetrical smile. Normal speech, normal gait. PSYCH: Normal mood, normal affect. SKIN: Warm, Dry, normal turgor, no rashes or lesions noted. Limitations: no limitations Rectal exam: Present: normal inspection, normal rectal tone, heme (-) stool, hemorrhoids (Very mild external and internal hemorrhoids.), other (No visible b leeding.) Course Vital Signs 03/30/20 14:51 Temperature 99.5 F Pulse Rate 95 Respiratory 18 Rate Blood Pressure 137/87 O2 Sat by Pulse 98 Oximetry Medical Decision Making - Medical Decision Making Patient is a 45-year-old female, with history of H. pylori infection, presenting for lower abdominal discomfort, rectal pain, rectal bleeding that has been happening for the past 3 weeks. She does see GI specialist Dr. aMlik but has not in many years. Her vital signs are stable she is afebrile. Patient states she is unable to sit on her behind is secondary to this shooting pain. She continuously asked for pain medication. Her lab work shows a very slight leukocytosis at 12, most likely reactive. Rest of lab work is stable, stable hemoglobin, lactic acid is 1.3, stool occult blood was negative. I did do a computed tomography scan of her abdomen and pelvic which showed no acute findings. Patient was given fluids, pain control. She's been resting comfortably in the ER. She was seen on several occasions sitting on her behind without discomfort. She is moving around her hospital bed without discomfort. She is requesting additional pain medicine before she is discharged. I do recommend following up with her GI specialist. I will start her on antibiotics for possible H. pylori infection. Patient is agreeable with this plan of care. She is stable for discharge. Return parameters were discussed with the patient she verbalized understanding. Case discussed with Dr. Coreas. - Lab Data Result diagrams: 03/30/20 16:29 03/30/20 16:29 Lab Results 03/30/20 03/30/20 03/30/20 Range/Units 16:29 16:29 16:29 WBC 12.0 H (3.8-10.6) k/uL RBC 5.33 (3.80-5.40) m/uL Hgb 13.4 (11.4-16.0) gm/dL Hct 42.9 (34.0-46.0) % MCV 80.5 (80.0-100.0) fL MCH 25.2 (25.0-35.0) pg MCHC 31.3 (31.0-37.0) g/dL RDW 14.1 (11.5-15.5) % Plt Count 419 (150-450) k/uL Neutrophils % 79 % Lymphocytes % 14 % Monocytes % 4 % Eosinophils % 2 % Basophils % 0 % Neutrophils # 9.6 H (1.3-7.7) k/uL Lymphocytes # 1.7 (1.0-4.8) k/uL Monocytes # 0.5 (0-1.0) k/uL Eosinophils # 0.2 (0-0.7) k/uL Basophils # 0.0 (0-0.2) k/uL PT 10.1 (9.0-12.0) sec INR 1.0 (<1.2) APTT 29.5 (22.0-30.0) sec Sodium 141 (137-145) mmol/L Potassium 4.1 (3.5-5.1) mmol/L Chloride 107 (98-107) mmol/L Carbon Dioxide 22 (22-30) mmol/L Anion Gap 12 mmol/L BUN 11 (7-17) mg/dL Creatinine 1.02 (0.52-1.04) mg/dL Est GFR (CKD-EPI)AfAm 78 (>60 ml/min/1.73 sqM) Est GFR (CKD-EPI)NonAf 68 (>60 ml/min/1.73 sqM) Glucose 107 H (74-99) mg/dL Plasma Lactic Acid Edgar (0.7-2.0) mmol/L Calcium 10.2 (8.4-10.2) mg/dL Total Bilirubin 0.6 (0.2-1.3) mg/dL AST 21 (14-36) U/L ALT 15 (4-34) U/L Alkaline Phosphatase 145 H (38-126) U/L Total Protein 8.0 (6.3-8.2) g/dL Albumin 4.3 (3.5-5.0) g/dL Stool Occult Blood (Negative) 03/30/20 03/30/20 Range/Units 16:29 16:41 WBC (3.8-10.6) k/uL RBC (3.80-5.40) m/uL Hgb (11.4-16.0) gm/dL Hct (34.0-46.0) % MCV (80.0-100.0) fL MCH (25.0-35.0) pg MCHC (31.0-37.0) g/dL RDW (11.5-15.5) % Plt Count (150-450) k/uL Neutrophils % % Lymphocytes % % Monocytes % % Eosinophils % % Basophils % % Neutrophils # (1.3-7.7) k/uL Lymphocytes # (1.0-4.8) k/uL Monocytes # (0-1.0) k/uL Eosinophils # (0-0.7) k/uL Basophils # (0-0.2) k/uL PT (9.0-12.0) sec INR (<1.2) APTT (22.0-30.0) sec Sodium (137-145) mmol/L Potassium (3.5-5.1) mmol/L Chloride (98-107) mmol/L Carbon Dioxide (22-30) mmol/L Anion Gap mmol/L BUN (7-17) mg/dL Creatinine (0.52-1.04) mg/dL Est GFR (CKD-EPI)AfAm (>60 ml/min/1.73 sqM) Est GFR (CKD-EPI)NonAf (>60 ml/min/1.73 sqM) Glucose (74-99) mg/dL Plasma Lactic Acid Edgar 1.3 (0.7-2.0) mmol/L Calcium (8.4-10.2) mg/dL Total Bilirubin (0.2-1.3) mg/dL AST (14-36) U/L ALT (4-34) U/L Alkaline Phosphatase (38-126) U/L Total Protein (6.3-8.2) g/dL Albumin (3.5-5.0) g/dL Stool Occult Blood Negative (Negative) Disposition Clinical Impression: Abdominal pain, Rectal pain Disposition: HOME SELF-CARE Condition: Stable Instructions (If sedation given, give patient instructions): Rectal Pain (ED) Additional Instructions: Please return to the Emergency Department if symptoms worsen or any other concerns. Take antibiotic as prescribed. Follow up with GI doctor as discussed. Prescriptions: Amoxicillin 1,000 mg PO BID 10 Days #40 capsule Clarithromycin 500 mg PO BID 10 Days #20 tablet Is patient prescribed a controlled substance at d/c from ED?: No Referrals: Travis Fuentes DO [Primary Care Provider] - 1-2 days Minna Malik MD [STAFF PHYSICIAN] - 1-2 days
[2020-03-30 18:39] VITALS: BP 125/80; PULSE 64; RESP 16; TEMP 98.5
== END 2020-03-30 18:39 | disposition home or self-care (01) ==
LOC: EC 14:46
DX: K62.5 Hemorrhage of anus and rectum (principal); R10.30 Lower abdominal pain, unspecified; D72.829 Elevated white blood cell count, unspecified; F41.9 Anxiety disorder, unspecified; F32.9 Major depressive disorder, single episode, unspecified; F17.200 Nicotine dependence, unspecified, uncomplicated; Z79.899 Other long term (current) drug therapy; Z88.6 Allergy status to analgesic agent; Z98.84 Bariatric surgery status; Z90.710 Acquired absence of both cervix and uterus
CPT/HCPCS: 96374; 96375 ×2; 96376; 36415; 80053; 83605; 85025; 85610; 85730; 82272; 74177; 99285; J2270 ×2; J2405; C9113; Q9967

== ENCOUNTER → 2020-09-17 | Outpatient (CLI) | payer OTHER ==
--- NOTE | 2020-09-17 09:48 | US ---
EXAMINATION TYPE: US gallbladder DATE OF EXAM: 09/17/2020 COMPARISON: CT abdomen and pelvis March 30, 2020 CLINICAL HISTORY: R10.84 abdominal pain, K81.0 Acute cholecystitis. EXAM MEASUREMENTS: Liver Length: 14.7 cm Gallbladder Wall: 0.2 cm CBD: 0.4 cm Right Kidney: 11.0 x 4.5 x 5.5 cm Morbidly obese patient technically difficult study. Pancreas: Obscured by bowel gas Liver: wnl Gallbladder: wnl Evidence for sonographic Horner's sign: no CBD: wnl Right Kidney: wnl Visualized liver shows no worrisome mass or ductal dilatation. Gallbladder seen without mobile shadow ing gallstones. Suboptimal visualization of pancreas. No biliary dilatation. No right-sided hydroneph rosis. IMPRESSION: No gallstones or ultrasound evidence for acute cholecystitis.
== END ==
LOC: RADUSWWP 08:35
PROVIDERS: ATTEND Family Medicine
DX: R10.84 Generalized abdominal pain (principal)
CPT/HCPCS: 76705

== ENCOUNTER 2021-03-14 14:13 | Emergency (ER) | payer OTHER ==
[2021-03-14 14:30] VITALS: TEMP 98.2
[2021-03-14 15:05] LABS: Basophils # (A) 0.1 k/uL (0-0.2); Basophils % (A) 1 %; Eosinophils # (A) 0.1 k/uL (0-0.7); Eosinophils % (A) 1 %; Lymphocytes # (A) 1.8 k/uL (1.0-4.8); Lymphocytes % (A) 19 %; MCHC 32.4 g/dL (31.0-37.0); MCV 83.3 fL (80.0-100.0); Mean Platelet Volume 6.9; Monocytes # (A) 0.4 k/uL (0-1.0); Monocytes % (A) 4 %; Neutrophils # (A) 7.2 k/uL (1.3-7.7); Neutrophils % (A) 75 %; Platelet Count 484 k/uL (150-450); RBC 4.44 m/uL (3.80-5.40); WBC 9.6 k/uL (3.8-10.6)
[2021-03-14 15:15] LABS: Albumin 3.9 g/dL (3.5-5.0); Calcium 9.3 mg/dL (8.4-10.2); Potassium 4.2 mmol/L (3.5-5.1); Total Bilirubin 0.2 mg/dL (0.2-1.3); Total Protein 7.2 g/dL (6.3-8.2)
[2021-03-14 15:16] LABS: INR 0.9 (<1.2); Partial Thromboplastin Time 30.7 sec (22.0-30.0); Prothrombin Time 10.1 sec (9.0-12.0)
[2021-03-14] MEDS ORDERED: MORPHINE SULFATE 2 MG/ML SYRINGE IVP ONE (15:16)
--- NOTE | 2021-03-14 15:40 | XR ---
EXAMINATION TYPE: XR chest 2V DATE OF EXAM: 03/14/2021 COMPARISON: 06/02/2016 INDICATION: Pain TECHNIQUE: Frontal and lateral views of the chest are obtained. FINDINGS: The heart size is normal. The pulmonary vasculature is normal. The lungs are clear. IMPRESSION: 1. No acute pulmonary process.
--- NOTE | 2021-03-14 16:08 | CT ---
EXAMINATION TYPE: CT chest angio for PE DATE OF EXAM: 03/14/2021 COMPARISON: None HISTORY: elevated d-dimer CT DLP: 767.3 mGycm CONTRAST: CT chest with contrast and 3D reconstruction with MIP imaging is performed with IV Contrast, patient injected with 100 mL of Isovue 300. Contrast-enhanced CT of the chest was performed through the course of the pulmonary arteries with susanna g and mediastinal window settings submitted. 3D reconstruction with MIP imaging was also performed. PULMONARY ARTERIES: The pulmonary arteries and their major tributaries are patent. I do not see sid dence for sizable filling defect to suggest pulmonary embolic process. LUNGS: The lungs are clear and free of infiltrate. No evidence for atelectasis. No pulmonary nodule or mass is detected. No pleural effusion. MEDIASTINUM: Thoracic aorta is of normal caliber,however, evaluation is limited given timing of the contrast bolus. If there is concern for thoracic aortic pathology consider JASSON. Correlate clinicall y . The heart is not enlarged. No evidence for mediastinal mass. No mediastinal lymph nodes greater than 1cm. HILAR STRUCTURES: No evidence for mass. No hilar lymph nodes greater than 1 cm. UPPER ABDOMEN: No significant abnormality is seen. IMPRESSION: 1. No evidence for Pulmonary embolism at this time.
--- NOTE | 2021-03-14 16:15 | ED ---
Chest Pain HPI - General Chief Complaint: Chest Pain Stated Complaint: Chest Pain-sent by Travis Fuentes Time Seen by Provider: 03/14/21 15:12 Source: patient, RN notes reviewed Mode of arrival: wheelchair Limitations: no limitations - History of Present Illness Initial Comments: Patient is a 46-year-old female that presents to the emergency department per her primary care's request due to having mid chest and left-sided chest pain. She notes that she did have a pulmonary embolism earlier this year was put on an anticoagulant but had GI bleeding is a side effect and was taken off of it. She notes this chest pain feels very similar to her previous pulmonary embolism. She denied any cardiac history. She denied any difficulty in breathing at this time while during the exam and interview. She was otherwise a well-appearing 46-year-old female in no apparent distress. She denied any shortness of breath headache nausea vomiting diarrhea constipation fever fatigue chills. - Related Data Home Medications Medication Instructions Recorded Confirmed Zolpidem [Ambien] 10 mg PO HS 11/14/15 03/14/21 Escitalopram [Lexapro] 30 mg PO HS 04/20/17 03/14/21 Acetaminophen Tab [Tylenol] 650 mg PO Q4H PRN 03/30/20 03/14/21 Loratadine [Claritin] 10 mg PO DAILY PRN 03/30/20 03/14/21 Naproxen 500 mg PO BID PRN 03/30/20 03/14/21 Ondansetron [Zofran] 4 mg PO Q6H PRN 03/30/20 03/14/21 SUMAtriptan succinate [Imitrex] 50 mg PO DAILY PRN 03/30/20 03/14/21 Esomeprazole Magnesium [NexIUM] 40 mg PO DAILY 03/14/21 03/14/21 Fluticasone Nasal [place] [Flonase 1 spray EA NOSTRIL DAILY PRN 03/14/21 03/14/21 Nasal [place]] QUEtiapine [SEROquel] 12.5 mg PO HS 03/14/21 03/14/21 Allergies Allergy/AdvReac Type Severity Reaction Status Date / Time aspirin Allergy Severe Nausea & Verified 03/14/21 16:19 Vomiting NSAIDS (Non-Steroidal AdvReac Severe Nausea & Verified 03/14/21 16:19 Anti-Inflamma Vomiting Review of Systems ROS Statement: Those systems with pertinent positive or pertinent negative responses have been documented in the HPI. ROS Other: All systems not noted in ROS Statement are negative. EKG Findings - EKG Comments: EKG Findings:: Ventricular rate 77 bpm, CA interval 166 ms, QRS duration 84 ms, QTC 463 ms, PRT axes 32/8/0. Normal sinus rhythm, nonspecific T-wave abnormality, prolonged QT, abnormal ECG. Past Medical History Past Medical History: GERD/Reflux, Osteoarthritis (OA) Additional Past Medical History / Comment(s): hx. h-pylori, past hx. sepsis due to kidney infection 2013, stomach abcess History of Any Multi-Drug Resistant Organisms: MRSA Date of last positivie culture/infection: 2013 MDRO Source:: abdomen Past Surgical History: Bariatric Surgery, Bladder Surgery, Hysterectomy, Orthopedic Surgery Additional Past Surgical History / Comment(s): lap band surg. & since removed, 9 surg. on left knee, 2 on right knee, surg. as baby for hematoma on head, bladder suspension Past Anesthesia/Blood Transfusion Reactions: Motion Sickness, Postoperative Nausea & Vomiting (PONV) Additional Past Anesthesia/Blood Transfusion Reaction / Comment(s): always has problems urinating after spinal anesthesia Past Psychological History: Anxiety, Depression Smoking Status: Current every day smoker Past Alcohol Use History: None Reported Past Drug Use History: None Reported - Past Family History Father Family Medical History: Deep Vein Thrombosis (DVT), Pulmonary Embolus General Exam Limitations: no limitations General appearance: alert, in no apparent distress, obese Head exam: Present: atraumatic, normocephalic, normal inspection Eye exam: Present: normal appearance, PERRL, EOMI. Absent: scleral icterus, conjunctival injection, periorbital swelling Neck exam: Present: normal inspection Respiratory exam: Present: normal lung sounds bilaterally. Absent: respiratory distress, wheezes, rales, rhonchi, stridor Cardiovascular Exam: Present: regular rate, normal rhythm, normal heart sounds. Absent: systolic murmur, diastolic murmur, rubs, gallop, clicks GI/Abdominal exam: Present: soft, normal bowel sounds. Absent: distended, tenderness, guarding, rebound, rigid Extremities exam: Present: normal inspection, full ROM, normal capillary refill. Absent: tenderness, pedal edema, joint swelling, calf tenderness Neurological exam: Present: alert, oriented X3 Psychiatric exam: Present: normal affect, normal mood Skin exam: Present: warm, dry, intact, normal color. Absent: rash Course Vital Signs 03/14/21 14:26 Temperature 98.2 F Pulse Rate 73 Respiratory 16 Rate Blood Pressure 117/81 O2 Sat by Pulse 97 Oximetry Procedures - [place] Protocol (Time Out) Nurse: Channing Seth Chest Pain MDM - MDM 46-year-old female with history of pulmonary embolus in complaining of mid chest left-sided chest pain on breathing. Labs, chest x-ray, 4 g of morphine, rn cardiac cath ordered. Labs:D-dimer 1.03, rest of labs unremarkable. Troponin negative. CT chest angiography for PE: No evidence of pulmonary embolism at this time. Chest x-ray: No acute pulmonary process. Ultrasound of the right lower extremity ordered,Ultrasound of the right lower extremity: No evidence of DVT and thrombosis in the right leg. Popliteal cyst noted. Case discussed with Dr. Coreas, patient discharge home with close follow-up primary care. - [place] Criteria Clinical Symptoms of DVT: (0) No No Alternative Diagnosis: (0) No Immobilization of Surgery in Previous 4 Weeks: (0) No Previous DVT/PE: (1.5) Yes Hemoptysis: (0) No Malignancy: (0) No - PERC Rule Heart Rate < 100: (1) Yes No Prior History pf DVT/PE: (0) No No Recent Trauma or Surgery: (0) No Hemoptysis: (0) No No Clinical Signs Suggesting DVT: (0) No Disposition Clinical Impression: Atypical chest pain, Right leg pain, Bakers cyst, Epigastric pain Disposition: HOME SELF-CARE Condition: Stable Instructions (If sedation given, give patient instructions): Chest Pain (ED), Abdominal Pain (ED) Additional Instructions: Please return to the Emergency Department if symptoms worsen or any other concerns. Follow-up with primary care in the next 1-2 days. Take at home medications as prescribed. Is patient prescribed a controlled substance at d/c from ED?: No Referrals: Travis Fuentes DO [Primary Care Provider] - 1-2 days Time of Disposition: 17:37
--- NOTE | 2021-03-14 17:31 | US ---
EXAMINATION TYPE: US venous doppler duplex LE RT DATE OF EXAM: 03/14/2021 5:06 PM COMPARISON: NONE CLINICAL HISTORY: pain. edema and pain right leg SIDE PERFORMED: right TECHNIQUE: The lower extremity deep venous system is examined utilizing real time linear array sonog veena with graded compression, doppler sonography and color-flow sonography. VESSELS IMAGED: Common Femoral Vein Deep Femoral Vein Greater Saphenous Vein * Femoral Vein Popliteal Vein Small Saphenous Vein * Proximal Calf Veins (* superficial vessels) Right Leg: no evidence of DVT. complex anechoic area right popliteal fossa = 6.1 x 1.1 x 2.4cm, Bake r's cyst IMPRESSION: No evidence of deep vein thrombosis in the right leg. Popliteal cyst noted.
[2021-03-14] MEDS ORDERED: MORPHINE SULFATE 2 MG/ML SYRINGE IVP STA (17:34)
[2021-03-14 17:57] VITALS: BP 136/78; PULSE 80; RESP 18
== END 2021-03-14 18:09 | disposition home or self-care (01) ==
LOC: EC 14:13
DX: R07.89 Other chest pain (principal); M71.21 Synovial cyst of popliteal space [Baker], right knee; R10.13 Epigastric pain; F17.200 Nicotine dependence, unspecified, uncomplicated; K21.9 Gastro-esophageal reflux disease without esophagitis; M19.90 Unspecified osteoarthritis, unspecified site; Z88.6 Allergy status to analgesic agent; Z79.899 Other long term (current) drug therapy
CPT/HCPCS: 36415; 93005; 85379; 80053; 83735; 84484; 85025; 85610; 85730; 71046; 93971; 71275; 99285; 96374; 96376; J2270; Q9967